=== PATIENT | female | born 1950 | race African-American/Black ===

== ENCOUNTER 2023-12-22 09:39 | Outpatient (CLI) | payer MEDICARE, SELFPAY ==
--- NOTE | ~2023-12-22 | CT_ITS ---
EXAMINATION: CT soft tissue neck w con DATE: 12/22/2023 10:07 INDICATION: Right neck pain. Right supraclavicular pain. TECHNIQUE: Computed tomography (CT) of the neck was performed with 75 mL Omnipaque-350 intravenous co ntrast. Automated exposure control and iterative reconstruction technique were employed. The dose-jerome gth product was 395.29 mGy-cm. COMPARISON: None FINDINGS: The orbits are normal. The major salivary glands are normal. There are no pathologically en larged lymph nodes. There is plaque in the proximal internal carotid arteries with less than 50% sten osis relative to normal distal artery lumen diameters. The mastoid air cells are normal. There is min imal mucosal thickening in left maxillary sinus. There is severe cervical spondylosis. IMPRESSION: 1. No abnormal neck mass or lymphadenopathy. 2. Severe cervical spondylosis. Reviewed, dictated and finalized at location A.
[2023-12-22 09:57] LABS: Estimated Glomerular Filt Rate > 60
== END 2023-12-22 09:40 ==
LOC: MICIMG 09:42
PROVIDERS: PCP Internal Medicine; Visit Provider Internal Medicine
DX: M54.2 Cervicalgia (principal); M47.892 Other spondylosis, cervical region
CPT/HCPCS: 70491; Q9967

== ENCOUNTER 2025-05-28 12:15 | Outpatient (CLI) | payer MEDICARE, SELFPAY ==
--- NOTE | ~2025-05-28 | XR_ITS ---
XR lumbar spine 2-3V Indication: Low back pain Comparison: None Findings: Moderate osteopenia. Moderate loss of vertebral height throughout. Grade 1 retrolisthesis of L3 on L4, grade 1 anterolisthesis of L4 on L5. Moderate to severe loss of disc height throughout Soft tissues unremarkable Impression: No acute abnormality. Reviewed, dictated and finalized at location P. EDUCATION PROFESSOR Impression: No acute abnormality.
--- NOTE | ~2025-05-28 | CT_ITS ---
EXAMINATION: CT abdomen pelvis w con DATE: 05/28/2025 13:01 INDICATION: Abdominal pain. TECHNIQUE: Computed tomography (CT) of the abdomen and pelvis was performed with 100 mL Omnipaque 350 intravenous contrast. Automated exposure control and iterative reconstruction technique were employed. The dose-length product was 511.82 mGy-cm. COMPARISON: None. FINDINGS: The visualized portions of the lung bases demonstrate mild atelectasis. Calcified right lung nodules are consistent with old granulomatous disease. No pleural effusion. The heart size is normal. There are coronary artery calcifications. No pericardial effusion. The liver, gallbladder, spleen, pancreas, and adrenal glands are normal. There are cysts in the kidneys measuring up to 8.0 cm on the right. There is diverticulosis of the colon without evidence of diverticulitis. There is a large volume of stool in the colon. The appendix is not visualized. There are no pathologically enlarged lymp h nodes. There is no free intraperitoneal fluid. There is severe thoracic spondylosis and moderate lumbar spondylosis. IMPRESSION: 1. No specific etiology for the patient's symptoms. Reviewed, dictated and finalized at location E. SROOM AIDE
[2025-05-28 12:48] LABS: Estimated Glomerular Filt Rate 49
== END 2025-05-28 12:16 | disposition home or self-care (01) ==
LOC: MICIMG 12:16
PROVIDERS: PCP Internal Medicine; Visit Provider Internal Medicine
DX: R10.9 Unspecified abdominal pain (principal)
CPT/HCPCS: 72100; 74177; Q9967

== ENCOUNTER 2025-05-30 10:02 | Outpatient (CLI) | payer MEDICARE, SELFPAY ==
--- NOTE | ~2025-05-30 | XR_ITS ---
EXAMINATION: XR pelvis 1-2V, 05/30/2025 10:05 LAB RN HISTORY: Pelvic and perineal pain unspecified side COMPARISON: No comparisons available. Findings: No acute fracture or malalignment. No significant degenerative changes. Soft tissues unremarkable. Impression: No acute fracture or malalignment. Reviewed, dictated and finalized at location P. RN Impression: No acute fracture or malalignment.
== END 2025-05-30 10:03 | disposition home or self-care (01) ==
PROVIDERS: PCP Internal Medicine; Visit Provider Internal Medicine
DX: R10.20 Pelvic and perineal pain unspecified side (principal)
CPT/HCPCS: 72170